=== PATIENT | female | born 1955 | race Caucasian/White ===

== ENCOUNTER 2017-08-17 10:09 | Day surgery (SDC) | payer OTHER ==
[2017-08-16 16:53] VITALS: BMI 32.1
[~2017-08-17] VITALS: Ht 180.3 cm; Wt 102.0 kg
[~2017-08-17 10:09] MED LIST: ADV25050 INHALATION; ATOR40TA68 PO; CLINDAMYCIN 600 MG/D5W (PMX) 50 ML IVPB SCH; LEVO75TA5 PO; LISI-325 PO; SOD CHLORIDE 0.9% 1,000 ML IV SCH
[2017-08-17 10:51] VITALS: Ht 180.3 cm; Wt 102.0 kg
[2017-08-17 10:57] VITALS: BP 119/66; PULSE 68; RESP 19
[2017-08-17] MEDS ORDERED: ALBU18HF INHALATION (11:08)
[2017-08-17] MEDS ORDERED: ERGO2000 PO (11:09)
[2017-08-17] MEDS ORDERED: CYAN500T46 PO (11:09)
[2017-08-17] MEDS ORDERED: TRAM-40 PO (11:10)
[2017-08-17] MEDS ORDERED: CETI-240 PO (11:10)
[2017-08-17] MEDS ORDERED: CYCL5TAB PO (11:11)
[2017-08-17] MEDS ORDERED: ROPI0.25 PO (11:12)
[2017-08-17] MEDS ORDERED: MONT10TA24 PO (11:13)
[2017-08-17] MEDS ORDERED: TOPI50TA86 PO (11:13)
[2017-08-17] MEDS ORDERED: ASPI-664 PO (11:14)
[2017-08-17] MEDS ORDERED: NIT4 SL (11:14)
[2017-08-17] MEDS ORDERED: TERB250T46 PO (11:14)
[2017-08-17] MEDS ORDERED: AMOX1TAB10 PO (11:16)
[2017-08-17] MEDS ORDERED: PRED5TAB PO (11:18)
[2017-08-17] MEDS ORDERED: BUPIVACAINE 0.25% (MPF) 30 ML INJ ONE (11:36)
[2017-08-17] MEDS ORDERED: PROPOFOL 20 ML ONE (11:45)
[2017-08-17] MEDS ORDERED: DEXAMETHASONE 4 MG/ML 1 ML INJ ONE (11:45)
[2017-08-17] MEDS ORDERED: MIDAZOLAM 1 MG/ML 2 ML INJ ONE (11:45)
[2017-08-17] MEDS ORDERED: FENTAnyl 50 MCG/ML VIAL ONE (11:45)
[2017-08-17] MEDS ORDERED: ONDANSETRON 4 MG INJ ONE (11:45)
[2017-08-17] MEDS ORDERED: CLINDAMYCIN 600 MG/D5W (PMX) 50 ML IVPB ONE (11:45)
[2017-08-17] MEDS ORDERED: FAMOTIDINE 20 MG INJ ONE (11:46)
[2017-08-17] MEDS ORDERED: LIDOCAINE 1% (MDV) 20 ML INJ ONE (11:46)
[2017-08-17] MEDS ORDERED: PHENYLephrine (100 MCG/ML) 5ML SYG ONE (12:12)
[2017-08-17] MEDS ORDERED: KETOROLAC 30 MG INJ ONE (12:19)
[2017-08-17] MEDS ORDERED: HYDROCODONE/APAP (5/325) TAB PO ONE (13:00)
[2017-08-17] MEDS ORDERED: HYDROmorphONE (0.2 MG/ML) 10ML SYG IV PRN ×2 (13:00)
--- NOTE | 2017-08-17 13:06 | OPR ---
Date/Time of Note Date/Time of Note DATE: 08/17/17 TIME: 12:50 Operative Report Procedure Date: Aug 17, 2017 Preoperative Diagnosis left back upper mass left back lower mass right shoulder mass Postoperative Diagnosis same Operation/Procedure Performed 1. left upper back mass excision 3 cm incision 2 cm mass 2. left lower back mass excision 7 cm mass 7 cm incision 3. right shoulder mass excision 6 cm mass 6 cm incision 4. localized adjacent tissue transfer with the use of skin flaps 32 sq cm defect 5. therapeutic injection of subcutaneous marcaine Surgeon see signature line Plaster Mixer none Anesthesia Type: general Estimated Blood Loss: 10 - 50 ml's Transfusion none Specimen left upper back mass left lower back mass right shoulder mass Grafts/Implants none Complications none Pt Condition Post Procedure: stable Indications This is a 62-year-old female with multiple masses. She requests surgical excision. Risks alternatives benefits and percent were discussed the patient. Patient expresses understanding consents to the operation. Procedure Description Patient taken to the OR and prepped and draped in usual sterile fashion. Surgical timeout was performed. IV antibiotics were given. Left upper back mass is addressed. Transverse incision is made circumferentially around the mass. Elliptical incision was taken down to the mass and circumferential excise. There is good hemostasis due to tissue defect localized adjacent tissue transfer with these of skin flaps were performed multilayer closure with interrupted 3-0 Vicryl and skin kwesi. Therapeutic subcutaneous local anesthesia was injected throughout the incision. Attention was paid to the left lower back mass. Dissection cautery was carried down to the mass after a transverse incision is made. The mass is excised circumferentially with cautery. There is good hemostasis. Due to the tissue defect localized adjacent tissue transfer with these of skin flaps were performed. Multilayer closure with interrupted 3-0 Vicryl and skin kwesi. Therapeutic subcutaneous local anesthesia injected throughout the incision. Attention was then paid to the right shoulder mass. Transverse incision was made with a 15 blade. Dissection cautery was carried onto the mass and circumferentially excised. Good hemostasis. Due to tissue defect localized adjacent tissue transfer with these of skin flaps were performed. Multilayer closure with interrupted 0 Vicryl and skin kwesi. Therapeutic subcutaneous local anesthesia was injected throughout the incision. Dressings were applied to all incision sites. Luz KEITH Aug 17, 2017 13:04
[2017-08-17 13:55] VITALS: BP 107/57; PULSE 58; RESP 16
== END 2017-08-17 14:40 | disposition home or self-care (01) ==
LOC: SDS 10:09
PROVIDERS: ATTEND Surgery
DX: D22.5 Melanocytic nevi of trunk (principal); D17.1 Benign lipomatous neoplasm of skin and subcutaneous tissue of trunk; D17.21 Benign lipomatous neoplasm of skin and subcutaneous tissue of right arm; E03.9 Hypothyroidism, unspecified; I10 Essential (primary) hypertension; J45.909 Unspecified asthma, uncomplicated; Z88.8 Allergy status to other drugs, medicaments and biological substances
CPT/HCPCS: 88307; J1100; J1885; J2250; J2370; J2405; J3010